=== PATIENT | female | born 1985 | race African-American/Black ===

== ENCOUNTER 2017-05-28 15:30 | Emergency (ER) | payer MEDICARE, OTHER ==
[2017-05-28] MEDS ORDERED: SODIUM CHLORIDE 0.9% 1,000 ML IV STA (17:01)
[2017-05-28] MEDS ORDERED: diphenhydrAMINE 50 MG/ML 1 ML VIAL IVP STA (17:01)
[2017-05-28] MEDS ORDERED: METOCLOPRAMIDE 5 MG/ML 2 ML VIAL IVP STA (17:01)
[2017-05-28] MEDS ORDERED: KETOROLAC 30 MG/ML 1 ML VIAL IVP STA (17:01)
[2017-05-28] MEDS ORDERED: ORPHENADRINE 30 MG/ML 2 ML VIAL IVP STA (18:15)
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
[2017-05-28 19:17] VITALS: BP 128/56; PULSE 72; RESP 20; TEMP 98.3
== END 2017-05-28 19:15 | disposition home or self-care (01) ==
LOC: EC 15:30
DX: G43.909 Migraine, unspecified, not intractable, without status migrainosus (principal); R11.10 Vomiting, unspecified; F32.9 Major depressive disorder, single episode, unspecified; Z79.899 Other long term (current) drug therapy; Z88.6 Allergy status to analgesic agent; Z88.5 Allergy status to narcotic agent; Z87.820 Personal history of traumatic brain injury
CPT/HCPCS: 99284; 96374; 96375 ×3; 96361; J1200; J2360; J2765; J1885

== ENCOUNTER 2017-06-08 15:17 | Emergency (ER) | payer MEDICARE, OTHER ==
[2017-06-08 15:36] VITALS: BP 133/79; PULSE 100; RESP 16; TEMP 98.1
[2017-06-08] MEDS ORDERED: KETOROLAC 60 MG/2 ML VIAL IM STA (15:47)
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
== END 2017-06-08 17:21 | disposition home or self-care (01) ==
LOC: EC 15:17
DX: S16.1XXA Strain of muscle, fascia and tendon at neck level, initial encounter (principal); M79.632 Pain in left forearm; F32.9 Major depressive disorder, single episode, unspecified; Z87.828 Personal history of other (healed) physical injury and trauma; Z79.3 Long term (current) use of hormonal contraceptives; Z79.899 Other long term (current) drug therapy; Z88.5 Allergy status to narcotic agent; W05.0XXA Fall from non-moving wheelchair, initial encounter
CPT/HCPCS: 72050; 73060; 73090; 99283; 96372; J1885

== ENCOUNTER → 2018-06-11 | Day surgery (SDC) | payer MEDICARE, OTHER ==
[2018-06-04 15:43] VITALS: BMI 33.2
[~2018-06-11] MED LIST: DEXAMETHASONE SOD PHOSPHATE 10 MG/ML 1 ML VIAL IV ONE; HEPARIN SODIUM,PORCINE 5,000 UNIT/ML 1 ML VIAL SQ ONE; LACTATED RINGERS 1,000 ML IV SCH; LIDOCAINE 1% 20 ML VIAL (10MG/ML) FOR IV START INTRADERMA PRN; MIDAZOLAM 2 MG/2 ML VIAL IV PRN; ONDANSETRON 4 MG/2 ML VIAL IVP ONE; Pre Op ABX Message 1 EACH MISC MISCELLANE ONE; fentaNYL (PF) 50 MCG/ML 2 ML AMP IV PRN
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
== END ==
LOC: OR 12:00
PROVIDERS: ATTEND Surgery
DX: Z53.9 Procedure and treatment not carried out, unspecified reason (principal)

== ENCOUNTER → 2019-03-03 | Outpatient (CLI) | payer MEDICARE, OTHER ==
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
--- NOTE | 2019-03-03 13:52 | MR ---
EXAMINATION TYPE: MR pituitary wo/w con DATE OF EXAM: 03/03/2019 COMPARISON: NONE HISTORY: Hyperprolactinemia TECHNIQUE: Multiplanar, multisequence images of the brain and brainstem is performed without and with IV contras t, utilizing 10 mL intravenous Gadavist . Pituitary gland protocol. FINDINGS: Pituitary gland is normal in size within the sella turcica. Post contrast images show fairl y homogeneous enhancement without areas of nonenhancement to suggest pituitary microadenoma. Pituitar y stalk shows normal enhancement in the midline. Suprasellar cistern is maintained. Optic chiasm is n ot effaced. There is no gross hydrocephalus. Craniocervical junction appears within normal limits. Note is made o f partial visualization of anterior left frontal cystic encephalomalacia with ex vacuo dilatation of the left frontal horn seen best on coronal image 1. Artifact from adjacent surgical change noted. IMPRESSION: No MRI evidence for pituitary micro or macroadenoma.
== END | disposition home or self-care (01) ==
LOC: RADMRIMAIN 10:58
PROVIDERS: ATTEND Family Medicine
DX: Z01.818 Encounter for other preprocedural examination (principal); E22.1 Hyperprolactinemia
CPT/HCPCS: 70030; 70553; A9585

== ENCOUNTER 2019-10-10 11:51 | Emergency (ER) | payer MEDICARE, OTHER ==
[2019-10-10 11:57] VITALS: TEMP 97.6
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
--- NOTE | 2019-10-10 13:47 | US ---
EXAMINATION TYPE: US venous doppler duplex LE LT DATE OF EXAM: 10/10/2019 1:08 PM COMPARISON: NONE CLINICAL HISTORY: pain, swelling. pain, no hx dvt, not on blood thinners SIDE PERFORMED: Left TECHNIQUE: The lower extremity deep venous system is examined utilizing real time linear array sonog [place] with graded compression, doppler sonography and color-flow sonography. VESSELS IMAGED: External Iliac Vein (EIV) Common Femoral Vein Deep Femoral Vein Greater Saphenous Vein * Femoral Vein Popliteal Vein Small Saphenous Vein * Proximal Calf Veins (* superficial vessels) There is normal flow, compressibility, vascular waveforms. Left Leg: Negative for DVT IMPRESSION: No evident deep venous thrombosis at or above the left knee
[2019-10-10 14:23] VITALS: BP 119/78; PULSE 80; RESP 16
== END 2019-10-10 14:23 | disposition home or self-care (01) ==
LOC: EC 11:51
DX: I80.02 Phlebitis and thrombophlebitis of superficial vessels of left lower extremity (principal); J45.909 Unspecified asthma, uncomplicated; G89.29 Other chronic pain; M54.9 Dorsalgia, unspecified; Z99.3 Dependence on wheelchair; F17.200 Nicotine dependence, unspecified, uncomplicated; Z79.51 Long term (current) use of inhaled steroids; Z79.891 Long term (current) use of opiate analgesic; Z79.899 Other long term (current) drug therapy; Z88.5 Allergy status to narcotic agent; Z91.013 Allergy to seafood; Z88.6 Allergy status to analgesic agent; Z87.828 Personal history of other (healed) physical injury and trauma; Z98.890 Other specified postprocedural states
CPT/HCPCS: 99283

== ENCOUNTER → 2022-01-22 | Outpatient (CLI) | payer MEDICARE, OTHER ==
--- NOTE | 2022-01-22 14:35 | MM ---
Reason for exam: screening (asymptomatic). Baseline mammogram. History: Patient is nulliparous. Family history of breast cancer in maternal cousin at age 30 and breast cancer in maternal aunt. Physical Findings: A clinical breast exam by your physician is recommended on an annual basis and results should be correlated with mammographic findings. MG 3D Screening Mammo W/Cad Bilateral CC and MLO view(s) were taken. There are scattered fibroglandular densities. There is no discrete abnormality. ASSESSMENT: Negative, BI-RAD 1 RECOMMENDATION: Routine screening mammogram of both breasts in 1 year.
== END | disposition home or self-care (01) ==
LOC: RADMAMWWP 12:49
PROVIDERS: ATTEND Family Medicine
DX: Z12.31 Encounter for screening mammogram for malignant neoplasm of breast (principal); Z80.3 Family history of malignant neoplasm of breast
CPT/HCPCS: 77063; 77067

== ENCOUNTER → 2022-08-13 | Outpatient (CLI) | payer MEDICARE, OTHER ==
--- NOTE | 2022-08-13 09:39 | XR ---
EXAMINATION TYPE: XR chest 2V DATE OF EXAM: 08/13/2022 COMPARISON: NONE TECHNIQUE: PA and lateral views submitted. HISTORY: Foreign body FINDINGS: The lungs are clear and there is no pneumothorax, pleural effusion, or focal pneumonia. Metallic fo reign body overlying the left chest. On the lateral view anterior subcutaneous tissues along the rib cage. Chronic appearing deformity of the left shoulder. IMPRESSION: 1. No acute process. Chronic metallic foreign body overlying the left chest within the subcutaneous t issues just anterior to the upper left rib cage.
== END | disposition home or self-care (01) ==
LOC: RADXRMAIN 09:02
PROVIDERS: ATTEND Surgery
DX: S20.359A Superficial foreign body of unspecified front wall of thorax, initial encounter (principal); M21.212 Flexion deformity, left shoulder; X58.XXXA Exposure to other specified factors, initial encounter
CPT/HCPCS: 71046

== ENCOUNTER 2022-11-21 13:15 | Emergency (ER) | payer MEDICARE, OTHER ==
[2022-11-21 13:36] VITALS: RESP 16
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
[2022-11-21] MEDS ORDERED: KETOROLAC 15 MG/ML 1 ML VIAL IVP STA (15:31)
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
[2022-11-21 16:10] LABS: Basophils # (A) 0.1 k/uL (0-0.2); Basophils % (A) 1 %; Eosinophils # (A) 0.2 k/uL (0-0.7); Eosinophils % (A) 2 %; HCT 43.6 % (34.0-46.0); HGB 14.3 gm/dL (11.4-16.0); Hypochromasia Slight; Lymphocytes # (A) 2.6 k/uL (1.0-4.8); Lymphocytes % (A) 31 %; MCH 30.8 pg (25.0-35.0); MCHC 32.7 g/dL (31.0-37.0); MCV 94.1 fL (80.0-100.0); Mean Platelet Volume 10.7; Monocytes # (A) 0.4 k/uL (0-1.0); Monocytes % (A) 5 %; Neutrophils # (A) 5.1 k/uL (1.3-7.7); Neutrophils % (A) 60 %; Platelet Count 225 k/uL (150-450); RBC 4.64 m/uL (3.80-5.40); RDW 13.6 % (11.5-15.5); WBC 8.5 k/uL (3.8-10.6)
[2022-11-21 16:28] LABS: ALT 41 U/L (4-34); AST 23 U/L (14-36); African American GFR (CKD) >90 (>60 ml/min/1.73 sqM); Albumin 4.3 g/dL (3.5-5.0); Alkaline Phosphatase 112 U/L (38-126); Anion Gap 11 mmol/L; Blood Urea Nitrogen 9 mg/dL (7-17); Calcium 9.7 mg/dL (8.4-10.2); Carbon Dioxide 22 mmol/L (22-30); Chloride 103 mmol/L (98-107); Glucose 325 mg/dL (74-99); Magnesium 1.7 mg/dL (1.6-2.3); Non-African American GFR(CKD) >90 (>60 ml/min/1.73 sqM); Potassium 4.3 mmol/L (3.5-5.1); Sodium 136 mmol/L (137-145); Total Bilirubin 0.4 mg/dL (0.2-1.3); Total Protein 7.2 g/dL (6.3-8.2)
[2022-11-21 16:33] LABS: INR 0.9 (<1.2); Partial Thromboplastin Time 22.1 sec (22.0-30.0); Prothrombin Time 9.9 sec (9.0-12.0)
[2022-11-21] MEDS ORDERED: MORPHINE SULFATE 2 MG/ML SYRINGE IVP STA (17:22)
[2022-11-21 20:43] VITALS: BP 119/79; PULSE 74; TEMP 98.6
== END 2022-11-21 20:44 | disposition home or self-care (01) ==
LOC: EC 13:15
DX: R07.89 Other chest pain (principal); J45.909 Unspecified asthma, uncomplicated; F17.200 Nicotine dependence, unspecified, uncomplicated; F12.90 Cannabis use, unspecified, uncomplicated; Z91.013 Allergy to seafood; Z88.5 Allergy status to narcotic agent; Z79.899 Other long term (current) drug therapy
CPT/HCPCS: 36415; 80053; 83735; 84484; 85025; 85610; 85730; 71046; 99285; J2270; J1885

== ENCOUNTER → 2023-10-15 | Outpatient (CLI) | payer MEDICARE, OTHER ==
--- NOTE | 2023-10-15 17:01 | US ---
EXAMINATION TYPE: US axilla RT DATE OF EXAM: 10/15/2023 COMPARISON: 01/22/2022. CLINICAL INDICATION: Female, 38 years old with history of R22.31 Axillary mass, right; Right axilla p alpable mass x couple weeks Technique: Grayscale and color Doppler imaging of the right axilla. FINDINGS: The Right axilla: 0.9 x 0.4 x 0.7 cm superficial hypoechoic vascular mass seen at patient's area of kashif rn IMPRESSION: No abnormality is a hypoechoicLesion is felt to have a fatty hilum and likely represents a lymph node . Complete mammographic workup recommended.
== END | disposition home or self-care (01) ==
LOC: RADUSWWP 15:45
PROVIDERS: ATTEND Family Medicine
DX: R22.31 Localized swelling, mass and lump, right upper limb (principal)

== ENCOUNTER → 2024-01-01 | Outpatient (CLI) | payer MEDICARE, OTHER ==
--- NOTE | 2024-01-01 11:13 | MM ---
Reason for Exam: Clinical finding. Last mammogram was performed 1 year(s) and 11 month(s) ago. Indicated Problems: Lump or thickening of the right side. Patient History: Menarche at age 12. First Full-Term at age 19. Premenopausal. Patient has history of breast feeding. Maternal cousin had breast cancer, age 30. Maternal aunt had breast cancer. Last menstrual period: 12/13/2023 Risk Values: Sarah 5 year model risk: 0.5%. NCI Lifetime model risk: 9.7%. Prior Study Comparison: 01/22/2022 Bilateral Screening Mammogram, [facility]. Tissue Density: There are scattered fibroglandular densities. Findings: Analyzed By CAD. No significant change from prior exams. Overall Assessment: Incomplete: need additional imaging evaluation, BI-RAD 0 Management: Diagnostic Breast Ultrasound of the right breast. For the previously seen abnormality on 10/15/2023 ultrasound. Electronically signed and approved by: Cheryl Ashraf M.D. Radiologist
--- NOTE | 2024-01-01 11:53 | USB ---
Reason for Exam: Follow-up at short interval from prior study. Patient History: Menarche at age 12. First Full-Term at age 19. Premenopausal. Patient has history of breast feeding. Maternal cousin had breast cancer, age 30. Maternal aunt had breast cancer. Risk Values: Sarah 5 year model risk: 0.5%. NCI Lifetime model risk: 9.7%. Technique: Method: Targeted. Prior Study Comparison: 01/22/2022 Bilateral Screening Mammogram, [facility]. Findings: The axilla of the right breast was scanned. Targeted ultrasound at the axilla at the site of previously seen abnormality. The previous abnormality, possible sebaceous cyst which partially involves the skin layer appears to have resolved. No axillary adenopathy. Overall Assessment: Benign, BI-RAD 2 Management: Screening Mammogram of both breasts in 1 year. A clinical breast exam by your physician is recommended on an annual basis and results should be correlated with mammographic findings. This exam should not preclude additional follow-up of suspicious palpable abnormalities. Results were given to the patient verbally at the time of exam. Electronically signed and approved by: Cheryl Ashraf M.D. Radiologist
== END | disposition home or self-care (01) ==
LOC: RADMAMWWP 10:14
PROVIDERS: ATTEND Family Medicine
DX: R22.31 Localized swelling, mass and lump, right upper limb (principal); Z80.3 Family history of malignant neoplasm of breast
CPT/HCPCS: 77062; 77066

== ENCOUNTER 2024-04-08 00:17 | Emergency (ER) | payer MEDICARE, OTHER ==
[2024-04-08 01:06] VITALS: TEMP 98.2
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
[2024-04-08] MEDS: HYDROmorphone 0.5 MG/0.5 ML SYRINGE IVP STA (03:28)
[2024-04-08] MEDS: MORPHINE SULFATE 4 MG/ML SYRINGE IVP STA (03:30)
[2024-04-08 05:25] VITALS: BP 122/85; PULSE 77; RESP 18
--- NOTE | 2024-04-08 06:06 | XR ---
EXAM: XR Chest, 2 Views CLINICAL HISTORY: Chest pain. TECHNIQUE: Frontal and lateral views of the chest. COMPARISON: 11/21/22 FINDINGS: Lungs: Normal lung volumes. No evidence of airspace consolidation. No pulmonary edema. Pleural space: Unremarkable. No pneumothorax. No pleural effusions. Heart: Unremarkable. No cardiomegaly. Mediastinum: Normal mediastinal contour. Metallic foreign body again seen in the projection of the left mediastinum, unchanged. Bones/joints: Unremarkable. No acute fracture. IMPRESSION: No evidence of acute cardiopulmonary abnormality.
== END 2024-04-08 04:24 | disposition home or self-care (01) ==
LOC: EC 00:17
DX: R07.89 Other chest pain (principal); F17.200 Nicotine dependence, unspecified, uncomplicated; Z88.5 Allergy status to narcotic agent; Z91.013 Allergy to seafood
CPT/HCPCS: 93005; 71046; 99285; 96374; J1170

== ENCOUNTER 2024-04-22 19:17 | Emergency (ER) | payer MEDICARE, OTHER ==
[2024-04-22 19:31] VITALS: RESP 18; TEMP 98
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
[2024-04-22] MEDS: MORPHINE SULFATE 4 MG/ML SYRINGE IV STA (20:26)
[2024-04-22] MEDS: SODIUM CHLORIDE 0.9% 500 ML 500 ML IV STA (20:27)
[2024-04-22 20:39] LABS: Basophils % (A) 0 %; Eosinophils # (A) 0.2 k/uL (0-0.7); Eosinophils % (A) 3 %; HCT 46.6 % (34.0-46.0); HGB 14.9 gm/dL (11.4-16.0); Lymphocytes # (A) 3.9 k/uL (1.0-4.8); Lymphocytes % (A) 49 %; MCH 32.3 pg (25.0-35.0); MCHC 32.1 g/dL (31.0-37.0); MCV 100.5 fL (80.0-100.0); Mean Platelet Volume 10.4; Monocytes # (A) 0.5 k/uL (0-1.0); Monocytes % (A) 6 %; Neutrophils # (A) 3.2 k/uL (1.3-7.7); Neutrophils % (A) 40 %; Platelet Count 166 k/uL (150-450); RBC 4.63 m/uL (3.80-5.40); WBC 8.1 k/uL (3.8-10.6)
[2024-04-22 21:02] LABS: ALT 116 U/L (4-34); AST 33 U/L (14-36); African American GFR (CKD) >90 (>60 ml/min/1.73 sqM); Alkaline Phosphatase 79 U/L (38-126); Anion Gap 5 mmol/L; Blood Urea Nitrogen 11 mg/dL (7-17); Calcium 9.2 mg/dL (8.4-10.2); Carbon Dioxide 25 mmol/L (22-30); Chloride 106 mmol/L (98-107); Glucose 184 mg/dL (74-99); Lipase 193 U/L (23-300); Magnesium 1.8 mg/dL (1.6-2.3); Non-African American GFR(CKD) >90 (>60 ml/min/1.73 sqM); Potassium 3.9 mmol/L (3.5-5.1); Sodium 136 mmol/L (137-145); Total Bilirubin 0.5 mg/dL (0.2-1.3); Total Protein 6.5 g/dL (6.3-8.2)
[2024-04-22 21:04] LABS: Prothrombin Time 10.9 sec (10.0-12.5)
[2024-04-22 21:05] LABS: Partial Thromboplastin Time 20.6 sec (22.0-30.0)
--- NOTE | 2024-04-22 21:06 | XR ---
EXAMINATION TYPE: XR chest 1V portable DATE OF EXAM: 04/22/2024 8:51 PM CLINICAL INDICATION:Female, 38 years old with history of chest pain; COMPARISON: Chest radiographs from dating back to 08/13/2022 TECHNIQUE: XR chest 1V portable Frontal view of the chest. FINDINGS: Lungs/Pleura: There is no evidence of pleural effusion, focal consolidation, or pneumothorax. Pulmonary vascularity: Unremarkable. Heart/mediastinum: Cardiomediastinal silhouette is unremarkable. Musculoskeletal: No acute osseous pathology. Other findings: Metallic density projects over the heart similar prior. IMPRESSION: No acute cardiopulmonary disease/process.
[2024-04-22 21:10] LABS: NT-Pro-B-Type Natriuretic Pept <20 pg/mL
[2024-04-22 22:11] VITALS: BP 125/99; PULSE 83
== END 2024-04-22 22:23 | disposition home or self-care (01) ==
LOC: EC 19:17
DX: R07.89 Other chest pain (principal); F17.200 Nicotine dependence, unspecified, uncomplicated; F12.90 Cannabis use, unspecified, uncomplicated; Z88.5 Allergy status to narcotic agent; Z91.018 Allergy to other foods; Z88.6 Allergy status to analgesic agent
CPT/HCPCS: 36415; 93005; 83880; 80053; 83690; 83735; 84484; 85025; 85610; 85730; 71045; 99285; 96374; 96361; J2270

== ENCOUNTER 2024-04-28 15:21 | Emergency (ER) | payer MEDICARE, OTHER ==
[2024-04-28 15:26] VITALS: BP 130/94; PULSE 92; RESP 16; TEMP 97.9
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
== END 2024-04-28 17:42 | disposition home or self-care (01) ==
LOC: EC 15:21
DX: S09.90XA Unspecified injury of head, initial encounter (principal); F17.200 Nicotine dependence, unspecified, uncomplicated; Z88.5 Allergy status to narcotic agent; Z91.013 Allergy to seafood; W18.30XA Fall on same level, unspecified, initial encounter
CPT/HCPCS: 70450; 99283

== ENCOUNTER 2024-05-11 23:58 | Emergency (ER) | payer MEDICARE, OTHER ==
[2024-05-12 00:10] VITALS: TEMP 97.6
[2024-05-12] MEDS: KETOROLAC 15 MG/ML 1 ML VIAL IVP STA (00:52)
[2024-05-12 00:57] LABS: Basophils % (A) 1 %; Eosinophils # (A) 0.2 k/uL (0-0.7); Eosinophils % (A) 3 %; HCT 51.2 % (34.0-46.0); HGB 16.5 gm/dL (11.4-16.0); Lymphocytes # (A) 3.2 k/uL (1.0-4.8); Lymphocytes % (A) 47 %; MCH 32.5 pg (25.0-35.0); MCHC 32.2 g/dL (31.0-37.0); MCV 100.7 fL (80.0-100.0); Mean Platelet Volume 10.4; Monocytes # (A) 0.5 k/uL (0-1.0); Monocytes % (A) 7 %; Neutrophils # (A) 2.8 k/uL (1.3-7.7); Neutrophils % (A) 41 %; Platelet Count 183 k/uL (150-450); RBC 5.08 m/uL (3.80-5.40); RDW 12.7 % (11.5-15.5); WBC 6.9 k/uL (3.8-10.6)
[2024-05-12 01:07] LABS: INR 1.1 (<1.2); Partial Thromboplastin Time 23.1 sec (22.0-30.0); Prothrombin Time 11.7 sec (10.0-12.5)
[2024-05-12 01:17] LABS: ALT 34 U/L (4-34); AST 43 U/L (14-36); African American GFR (CKD) >90 (>60 ml/min/1.73 sqM); Albumin 4.5 g/dL (3.5-5.0); Alkaline Phosphatase 75 U/L (38-126); Anion Gap 6 mmol/L; Blood Urea Nitrogen 8 mg/dL (7-17); Calcium 9.1 mg/dL (8.4-10.2); Carbon Dioxide 25 mmol/L (22-30); Chloride 108 mmol/L (98-107); Glucose 109 mg/dL (74-99); Magnesium 2.1 mg/dL (1.6-2.3); Non-African American GFR(CKD) >90 (>60 ml/min/1.73 sqM); Sodium 139 mmol/L (137-145); Total Bilirubin 1.1 mg/dL (0.2-1.3); Total Protein 7.6 g/dL (6.3-8.2)
[2024-05-12 01:19] LABS: Potassium 4.4 mmol/L (3.5-5.1)
[2024-05-12] MEDS: HYDROmorphone 0.5 MG/0.5 ML SYRINGE IVP STA (02:03)
--- NOTE | 2024-05-12 02:06 | XR ---
EXAM: XR Chest, 2 Views CLINICAL HISTORY: ITS.REASON XR Reason: Chest Pain TECHNIQUE: Frontal and lateral views of the chest. COMPARISON: No relevant prior studies available. FINDINGS: Lungs: No consolidation or mass. Pleural space: No effusion. Heart: No cardiomegaly. Bones/joints: No acute findings. IMPRESSION: No acute cardiopulmonary process.
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
[2024-05-12 03:38] VITALS: BP 119/81; PULSE 76; RESP 18
== END 2024-05-12 03:38 | disposition home or self-care (01) ==
LOC: EC 23:58
DX: G89.29 Other chronic pain (principal); R07.89 Other chest pain; F17.200 Nicotine dependence, unspecified, uncomplicated; Z88.5 Allergy status to narcotic agent; Z91.013 Allergy to seafood; I44.0 Atrioventricular block, first degree
CPT/HCPCS: 99285 ×2; 96374 ×2; 96375 ×2; 36415; 93005; 80053; 83735; 84484; 85025; 85610; 85730; 71046; J1885; J1170

== ENCOUNTER 2025-01-09 09:16 | Emergency (ER) | payer MEDICARE, OTHER ==
[2025-01-09 09:23] VITALS: RESP 18
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
[2025-01-09] MEDS: LIDOCAINE 4% PATCH TOPICAL ONE (09:57)
[2025-01-09] MEDS: KETOROLAC 15 MG/ML 1 ML VIAL IVP STA (09:58)
--- NOTE | 2025-01-09 10:17 | XR ---
EXAMINATION TYPE: XR lumbar spine 2 or 3V DATE OF EXAM: 01/09/2025 10:11 AM COMPARISON: Lumbar spine x-ray January 06, 2025 CLINICAL INDICATION: Female, 39 years old with history of pain, pain TECHNIQUE: Frontal and lateral oblique images of the lumbar spine are obtained. FINDINGS: There are 5 lumbar type vertebral bodies redemonstrated. The lumbar spine shows stable an d satisfactory alignment without evidence of acute fracture or dislocation. Vertebral body heights an d disk space heights remain within normal limits. Left upper pelvic phleboliths are redemonstrated. IMPRESSION: No acute findings are seen in the lumbar spine. No significant change from most recent p rior. [facility], , 01/09/2025 10:14 AM
[2025-01-09] MEDS: CYCLOBENZAPRINE 10 MG TAB PO STA (10:50)
[2025-01-09] MEDS: ACETAMINOPHEN TAB 325 MG TAB PO STA (10:51)
[2025-01-09 12:02] VITALS: BP 118/68; PULSE 72; TEMP 98
== END 2025-01-09 12:04 | disposition home or self-care (01) ==
LOC: EC 09:16
DX: M54.50 Low back pain, unspecified (principal); F17.200 Nicotine dependence, unspecified, uncomplicated
CPT/HCPCS: 72100; 99284; 96374; J1885

== ENCOUNTER 2025-04-24 12:57 | Emergency (ER) | payer MEDICARE, OTHER ==
[2025-04-24] MEDS: KETOROLAC 15 MG/ML 1 ML VIAL IVP STA (13:46)
[2025-04-24] MEDS: SODIUM CHLORIDE 0.9% 1,000 ML IV STA (13:50)
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
[2025-04-24 14:04] LABS: Basophils # (A) 0.03 10*3/uL (0.00-0.10); Basophils % (A) 0.5 %; Eosinophils # (A) 0.06 10*3/uL (0.04-0.35); HCT 46.4 % (37.2-46.3); HGB 16.2 g/dL (12.0-15.0); Lymphocytes # (A) 2.73 10*3/uL (0.90-5.00); Lymphocytes % (A) 44.8 %; MCH 33.4 pg (27.0-32.0); MCHC 34.9 g/dL (32.0-37.0); MCV 95.7 fL (80.0-97.0); Mean Platelet Volume 11.5 fL (9.5-12.2); Monocytes # (A) 0.45 10*3/uL (0.20-1.00); Monocytes % (A) 7.4 %; Neutrophils # (A) 2.81 10*3/uL (1.80-7.70); Platelet Count 202 10*3/uL (140-440); RBC 4.85 10*6/uL (4.10-5.20); RDW 11.9 % (11.5-14.5)
[2025-04-24 14:13] LABS: INR 1.1 (<1.2); Partial Thromboplastin Time 22.4 sec (22.0-30.0); Prothrombin Time 11.7 sec (10.0-12.5)
[2025-04-24] MEDS: MORPHINE SULFATE 4 MG/ML SYRINGE IV STA (14:16)
[2025-04-24 14:20] LABS: ALT 26 U/L (4-34); AST 19 U/L (14-36); African American GFR (CKD) >90 (>60 ml/min/1.73 sqM); Albumin 4.2 g/dL (3.5-5.0); Alkaline Phosphatase 63 U/L (38-126); Anion Gap 8 mmol/L; Blood Urea Nitrogen 7 mg/dL (7-17); Calcium 9.3 mg/dL (8.4-10.2); Carbon Dioxide 22 mmol/L (22-30); Chloride 106 mmol/L (98-107); Glucose 239 mg/dL (74-99); Magnesium 1.7 mg/dL (1.6-2.3); Non-African American GFR(CKD) >90 (>60 ml/min/1.73 sqM); Potassium 4.3 mmol/L (3.5-5.1); Sodium 136 mmol/L (137-145); Total Bilirubin 0.8 mg/dL (0.2-1.3); Total Protein 6.6 g/dL (6.3-8.2)
--- NOTE | 2025-04-24 15:33 | XR ---
EXAMINATION TYPE: XR chest 2V DATE OF EXAM: 04/24/2025 2:05 PM COMPARISON: None. CLINICAL INDICATION: Female, 39 years old with history of Chest Pain, TECHNIQUE: XR chest 2V view(s) obtained. FINDINGS: The heart size is normal. The pulmonary vasculature is normal. The lungs are clear. Metallic foreign body overlies left chest. IMPRESSION: 1. No acute pulmonary process. [facility], , 04/24/2025 3:30 PM
[2025-04-24 16:11] VITALS: BP 110/61; RESP 17; TEMP 98.1
[2025-04-24 16:17] VITALS: PULSE 84
== END 2025-04-24 16:10 | disposition home or self-care (01) ==
LOC: EC 12:57
DX: R07.89 Other chest pain (principal); Z87.828 Personal history of other (healed) physical injury and trauma; F17.200 Nicotine dependence, unspecified, uncomplicated; Z88.5 Allergy status to narcotic agent; Z91.013 Allergy to seafood
CPT/HCPCS: 36415; 93005; 80053; 83735; 84484; 85025; 85610; 85730; 71046; 99284; 96374; 96375; 96361; J2270; J1885